=== PATIENT | male | born 1990 | race Caucasian/White ===

== ENCOUNTER 2024-03-27 18:13 | Emergency (ER) | payer SELFPAY ==
[~2024-03-27] VITALS: Ht 170.2 cm; Wt 77.0 kg
[2024-03-27 18:26] VITALS: BP 152/84; PULSE 94; RESP 18; TEMP 98.4; O2SAT 98
[2024-03-27 21:52] LABS: HEMATOCRIT 44.7 % (42.0-52.0); HEMOGLOBIN 15.2 g/dL (14.0-18.0); MEAN CORPUSCULAR HEMOGLOBIN 33.8 pg (28.0-32.0); MEAN CORPUSCULAR VOLUME 99.4 fL (80.0-94.0); PLATELET 243 x1000/uL (130-400); RED CELL DISTRIBUTION WIDTH 14.3 % (11.6-14.6); WHITE BLOOD COUNT 9.6 x1000/uL (4.5-11.0)
[2024-03-27 21:56] LABS: CHLORIDE 106 mEq/L (98-107); POTASSIUM 3.6 mEq/L (3.5-5.1); SODIUM 141 mEq/L (136-145)
[2024-03-27 21:57] LABS: CARBON DIOXIDE 26 mEq/L (21-32)
[2024-03-27 22:03] LABS: CREATININE 0.8 mg/dL (0.6-1.3); GLUCOSE 106 mg/dL (70-105); UREA NITROGEN BLOOD 10 mg/dL (9-23)
== END 2024-03-27 23:16 | disposition home or self-care (01) ==
LOC: ER 18:13
DX: F22 Delusional disorders (principal); F41.9 Anxiety disorder, unspecified; F12.10 Cannabis abuse, uncomplicated; G47.00 Insomnia, unspecified
CPT/HCPCS: 36415; 80048; 85027; 99283